=== PATIENT | female | born 1945 | race Caucasian/White ===

== ENCOUNTER 2020-05-19 20:29 | Inpatient (IN) ==
[2020-05-19 21:28] LABS: Basophils % 0.6 %; Eosinophils # 0.2 K/mcL (0.0-0.6); Eosinophils % 2.6 %; Hematocrit 30.5 % (35.3-44.9); Hemoglobin 8.2 g/dL (11.5-15.4); Immature Granulocytes % 0.2 % (0-4); Lymphocytes % 16.9 %; Mean Corpuscular HGB Conc 26.9 g/dL (31.6-35.5); Mean Corpuscular Hemoglobin 23.4 pg (28.0-33.3); Mean Corpuscular Volume 86.9 fL (83.0-100.0); Mean Platelet Volume 10.3 fL (9.4-12.4); Monocytes # 0.7 K/mcL (0.0-1.3); Monocytes % 11.8 %; Neutrophils # 4.2 K/mcL (1.6-8.9); Platelet Count 238 K/mcL (140-400); Red Blood Count 3.51 M/mcL (3.82-4.97); Red Cell Distribution Width 20.2 % (11.5-14.5); Segmented Neutrophils % 67.9 %; White Blood Count 6.2 K/mcL (4.3-11.1)
[2020-05-19 21:32] LABS: INR 1.6
[2020-05-19 21:44] LABS: Anisocytosis 2+ (Not Present); Hypochromasia Present (Not Present)
[2020-05-19 21:46] LABS: Calcium 8.6 mg/dL (8.6-10.3); Potassium 5.2 mEq/L (3.5-5.1); Troponin I 0.05 ng/mL (< 0.04)
[2020-05-20] MEDS ORDERED: Naloxone 0.4 MG/ML INJ IVP PRN (00:34)
[2020-05-20] MEDS ORDERED: Furosemide 40 MG/4 ML VIAL IVP STA (00:36)
[2020-05-20] MEDS ORDERED: Furosemide 40 MG/4 ML VIAL IVP ONE ×2 (00:52→01:31)
[2020-05-20] MEDS ORDERED: Dextrose Gel 15 GM/37.5 ML TUBE PO PRN ×4 (00:54→01:31)
[2020-05-20] MEDS ORDERED: D5% in Water 1,000 ML IVC PRN ×2 (00:54→01:31)
[2020-05-20] MEDS ORDERED: *HR* Dextrose 50 % in Water (Vial) 50 ML VIAL IVP PRN ×2 (00:54→01:31)
[2020-05-20 06:13] LABS: Basophils # 0.1 K/mcL (0.0-0.2); Basophils % 0.9 %; Eosinophils # 0.3 K/mcL (0.0-0.6); Eosinophils % 4.7 %; Immature Granulocytes % 0.2 % (0-4); Lymphocytes % 18.8 %; Mean Corpuscular HGB Conc 26.7 g/dL (31.6-35.5); Mean Corpuscular Hemoglobin 23.1 pg (28.0-33.3); Mean Corpuscular Volume 86.5 fL (83.0-100.0); Mean Platelet Volume 11.4 fL (9.4-12.4); Monocytes # 0.7 K/mcL (0.0-1.3); Neutrophils # 3.3 K/mcL (1.6-8.9); Platelet Count 173 K/mcL (140-400); Red Blood Count 3.47 M/mcL (3.82-4.97); Red Cell Distribution Width 20.2 % (11.5-14.5); Segmented Neutrophils % 62.4 %; White Blood Count 5.3 K/mcL (4.3-11.1)
[2020-05-20 07:10] LABS: INR 1.5
[2020-05-20 07:20] LABS: Calcium 8.4 mg/dL (8.6-10.3); Potassium 4.8 mEq/L (3.5-5.1)
[2020-05-20] MEDS ORDERED: Insulin LISPRO 300 UNITS/3 ML VIAL SQ SCH ×2 (07:30→21:00)
[2020-05-20] MEDS: Insulin LISPRO 300 UNITS/3 ML VIAL SQ SCH ×4 (07:32→19:43)
[2020-05-20 07:54] LABS: Anisocytosis 1+ (Not Present); Microcytosis Present (Not Present); Platelet Clumps Few (Not Present)
[2020-05-20 07:55] LABS: Hypochromasia Present (Not Present); Platelet Estimate Normal (Normal)
[2020-05-20] MEDS ORDERED: NON-FORMULARY MEDICATION 1 EACH EACH (Vit C/E/Zn/Coppr/Lutein/Zeaxan [Preservision Areds 2 PO SCH (11:00)
[2020-05-20] MEDS: *HR* Metformin 500 MG TABLET PO SCH ×2 (11:44→16:29)
[2020-05-20] MEDS: Aspirin Enteric Coated 81 MG Tablet PO SCH (11:44)
[2020-05-20] MEDS: Multivit/Ca/Min/Fe/FA 1 TAB TABLET PO SCH (11:44)
[2020-05-20] MEDS: Cyanocobalamin (B-12) 1,000 MCG TABLET PO SCH (11:44)
[2020-05-20] MEDS: Budesonide/Formoterol 160/4.5 1 PUFF INH IH SCH ×2 (12:11→21:59)
[2020-05-20] MEDS: Furosemide 40 MG TABLET PO SCH (17:19)
[2020-05-20] MEDS ORDERED: Warfarin perPT PO PRN (18:00)
[2020-05-20] MEDS ORDERED: *HR* Warfarin 5 MG TABLET PO ONE (18:00)
[2020-05-21 07:43] LABS: Basophils # 0.1 K/mcL (0.0-0.2); Basophils % 0.8 %; Eosinophils # 0.2 K/mcL (0.0-0.6); Eosinophils % 2.7 %; Hemoglobin 8.1 g/dL (11.5-15.4); Immature Granulocytes % 0.2 % (0-4); Lymphocytes # 1.5 K/mcL (0.6-4.6); Mean Corpuscular Hemoglobin 23.5 pg (28.0-33.3); Mean Platelet Volume 9.9 fL (9.4-12.4); Monocytes # 0.7 K/mcL (0.0-1.3); Monocytes % 11.2 %; Neutrophils # 3.9 K/mcL (1.6-8.9); Platelet Count 230 K/mcL (140-400); Red Blood Count 3.45 M/mcL (3.82-4.97); Red Cell Distribution Width 20.3 % (11.5-14.5); Segmented Neutrophils % 61.1 %; White Blood Count 6.3 K/mcL (4.3-11.1)
[2020-05-21 07:51] LABS: INR 1.4; Prothrombin Time 15.4 Seconds (9.4-12.1)
[2020-05-21 08:02] LABS: Calcium 8.7 mg/dL (8.6-10.3); Potassium 4.5 mEq/L (3.5-5.1)
[2020-05-21] MEDS: Insulin LISPRO 300 UNITS/3 ML VIAL SQ SCH ×4 (08:38→20:11)
[2020-05-21] MEDS: Multivit/Ca/Min/Fe/FA 1 TAB TABLET PO SCH (08:39)
[2020-05-21] MEDS: Aspirin Enteric Coated 81 MG Tablet PO SCH (08:39)
[2020-05-21] MEDS: Furosemide 40 MG TABLET PO SCH ×2 (08:39→17:36)
[2020-05-21] MEDS: Cyanocobalamin (B-12) 1,000 MCG TABLET PO SCH (08:39)
[2020-05-21 08:53] LABS: Anisocytosis 1+ (Not Present); Hypochromasia Present (Not Present); Platelet Estimate Normal (Normal); Polychromasia 1+ (Not Present)
[2020-05-21] MEDS: Budesonide/Formoterol 160/4.5 1 PUFF INH IH SCH ×2 (11:03→22:52)
[2020-05-21] MEDS ORDERED: *HR* Warfarin 5 MG TABLET PO ONE (18:00)
[2020-05-22] MEDS ORDERED: Acetaminophen 325 MG TABLET PO PRN (06:16)
[2020-05-22 07:28] LABS: Basophils # 0.1 K/mcL (0.0-0.2); Basophils % 0.6 %; Eosinophils # 0.1 K/mcL (0.0-0.6); Hematocrit 29.9 % (35.3-44.9); Hemoglobin 8.1 g/dL (11.5-15.4); Immature Granulocytes % 0.4 % (0-4); Lymphocytes # 0.8 K/mcL (0.6-4.6); Lymphocytes % 9.3 %; Mean Corpuscular HGB Conc 27.1 g/dL (31.6-35.5); Mean Corpuscular Hemoglobin 23.6 pg (28.0-33.3); Mean Corpuscular Volume 87.2 fL (83.0-100.0); Mean Platelet Volume 10.1 fL (9.4-12.4); Monocytes # 0.9 K/mcL (0.0-1.3); Monocytes % 11.4 %; Neutrophils # 6.4 K/mcL (1.6-8.9); Platelet Count 224 K/mcL (140-400); Red Blood Count 3.43 M/mcL (3.82-4.97); Red Cell Distribution Width 20.5 % (11.5-14.5); Segmented Neutrophils % 77.3 %; White Blood Count 8.3 K/mcL (4.3-11.1)
[2020-05-22 07:31] LABS: INR 1.3; Prothrombin Time 14.6 Seconds (9.4-12.1)
[2020-05-22 07:46] LABS: Calcium 8.6 mg/dL (8.6-10.3); Potassium 4.2 mEq/L (3.5-5.1)
[2020-05-22 08:00] LABS: Anisocytosis 2+ (Not Present); Hypochromasia Present (Not Present)
[2020-05-22] MEDS: Furosemide 40 MG TABLET PO SCH (08:42)
[2020-05-22] MEDS: Multivit/Ca/Min/Fe/FA 1 TAB TABLET PO SCH (08:42)
[2020-05-22] MEDS: Cyanocobalamin (B-12) 1,000 MCG TABLET PO SCH (08:42)
[2020-05-22] MEDS: Aspirin Enteric Coated 81 MG Tablet PO SCH (08:42)
[2020-05-22] MEDS: Insulin LISPRO 300 UNITS/3 ML VIAL SQ SCH ×4 (08:44→20:44)
[2020-05-22] MEDS ORDERED: Furosemide 20 MG/2 ML VIAL IVP ONE (10:34)
[2020-05-22] MEDS: Budesonide/Formoterol 160/4.5 1 PUFF INH IH SCH ×2 (10:47→22:39)
[2020-05-22] MEDS: Piperacillin/Tazobactam 3.375 GM in 0.9 % Sodium Chloride Mini Bag 100 ML IVPB SCH (17:02)
[2020-05-22] MEDS: Furosemide 40 MG/4 ML VIAL IVP SCH (17:02)
[2020-05-22] MEDS: MethylPREDNISolone 40 MG/ML VIAL IVP SCH (17:02)
[2020-05-22] MEDS ORDERED: *HR* Warfarin 3 MG TABLET PO ONE (18:00)
[2020-05-23] MEDS ORDERED: Furosemide 40 MG/4 ML VIAL IVP ONE (00:13)
[2020-05-23] MEDS ORDERED: Albumin 25% 25gram/100mL 25 GM/100 ML IV.SOLN IVPB ONE (00:14)
[2020-05-23] MEDS: Piperacillin/Tazobactam 3.375 GM in 0.9 % Sodium Chloride Mini Bag 100 ML IVPB SCH ×2 (03:30→10:37)
[2020-05-23] MEDS: MethylPREDNISolone 40 MG/ML VIAL IVP SCH ×3 (06:23→18:16)
[2020-05-23 06:28] LABS: Hematocrit 27.6 % (35.3-44.9); Hemoglobin 7.7 g/dL (11.5-15.4); Immature Granulocytes % 0.5 % (0-4); Lymphocytes # 0.5 K/mcL (0.6-4.6); Lymphocytes % 12.3 %; Mean Corpuscular HGB Conc 27.9 g/dL (31.6-35.5); Mean Corpuscular Hemoglobin 24.1 pg (28.0-33.3); Mean Corpuscular Volume 86.3 fL (83.0-100.0); Mean Platelet Volume 10.3 fL (9.4-12.4); Monocytes # 0.1 K/mcL (0.0-1.3); Monocytes % 3.2 %; Neutrophils # 3.4 K/mcL (1.6-8.9); Platelet Count 184 K/mcL (140-400); Red Cell Distribution Width 20.3 % (11.5-14.5); White Blood Count 4.1 K/mcL (4.3-11.1)
[2020-05-23 06:36] LABS: INR 1.8
[2020-05-23 06:41] LABS: Calcium 8.5 mg/dL (8.6-10.3); Potassium 4.4 mEq/L (3.5-5.1)
[2020-05-23 07:03] LABS: Anisocytosis 2+ (Not Present); Hypochromasia Present (Not Present)
[2020-05-23] MEDS: Aspirin Enteric Coated 81 MG Tablet PO SCH (08:00)
[2020-05-23] MEDS: Insulin LISPRO 300 UNITS/3 ML VIAL SQ SCH ×3 (08:00→16:49)
[2020-05-23] MEDS: Multivit/Ca/Min/Fe/FA 1 TAB TABLET PO SCH (08:01)
[2020-05-23] MEDS: Cyanocobalamin (B-12) 1,000 MCG TABLET PO SCH (08:01)
[2020-05-23] MEDS: Budesonide/Formoterol 160/4.5 1 PUFF INH IH SCH (09:02)
[2020-05-23] MEDS: Furosemide 20 MG/2 ML VIAL IVP SCH ×2 (09:47→19:33)
[2020-05-23] MEDS: Furosemide 40 MG/4 ML VIAL IVP SCH (12:22)
[2020-05-23] MEDS ORDERED: *HR* Metoprolol 5 MG/5 ML VIAL IVP ONE (14:53)
[2020-05-23] MEDS ORDERED: Albumin Human 5% 12.5 GM/250 ML IV.SOLN IVPB SCH (18:00)
[2020-05-23] MEDS ORDERED: Albumin 25% 25gram/100mL 25 GM/100 ML IV.SOLN IVPB SCH (18:00)
[2020-05-23] MEDS ORDERED: *HR* Warfarin 2.5 MG TABLET PO ONE (18:00)
[2020-05-23 19:39] VITALS: BP 107/67
[2020-05-23] MEDS ORDERED: Piperacillin/Tazobactam 3.375 GM in 0.9 % Sodium Chloride Mini Bag 100 ML IVPB SCH (22:00)
== END 2020-05-23 20:40 | disposition short-term general hospital (02) | DRG 291 ==
LOC: EMEROOPIK 20:29 → INPPIK 20:29
PROVIDERS: ADMIT Family Medicine; ATTEND Family Medicine